=== PATIENT | male | born 1940 | race Caucasian/White ===

== ENCOUNTER 2017-09-09 10:24 | Inpatient (IN) | payer MEDICARE ==
[2017-09-09] MEDS ORDERED: methylPREDNISolone Sodium Succinate 125 MG/2 ML SDV IVPUSH ONE (10:33)
[2017-09-09] MEDS ORDERED: Aspirin 81 MG Tab.Chew PO ONE (10:39)
--- NOTE | 2017-09-09 10:39 | EDM.PDOC ---
ED HPI GENERAL MEDICAL PROBLEM - General Chief Complaint: Respiratory Problem Stated Complaint: AMB Time Seen by Provider: 09/09/17 10:28 Source of Information: Reports: Patient History Limitations: Reports: No Limitations - History of Present Illness INITIAL COMMENTS - FREE TEXT/NARRATIVE: HISTORY AND PHYSICAL: History of present illness: Patient is a 77-year-old male who presents to the emergency room with complaints of shortness of breath started approximately 2 AM this morning. He does have a history of COPD which he chronically has dyspnea. States he had some chills last night but no reported fever. Denies any headache, chest pain, abdominal pain, nausea, vomiting or diarrhea. EMS gave the patient a nebulizer treatment in route. Oxygen saturation on room air is 93%. He is 97% on 4 L per nasal cannula. Past medical history of COPD, asthma, bronchitis, recurrent pneumonia, CVA, HI with stents, dementia, left partial lobectomy. Review of systems: As per history of present illness and below otherwise all systems reviewed and negative. Past medical history: As per history of present illness and as reviewed below otherwise noncontributory. Surgical history: As per history of present illness and as reviewed below otherwise noncontributory. Social history: No reported history of drug or alcohol abuse. Family history: As per history of present illness and as reviewed below otherwise noncontributory. Physical exam: Gen.: Well-developed and well-nourished 77-year-old male. Appears to be short of breath and finds comfort sitting in a high followers position. He is alert and oriented. Able to speak in short sentences. HEENT: Atraumatic, normocephalic, pupils reactive, negative for conjunctival pallor or scleral icterus, mucous membranes moist, throat clear, neck supple, nontender, trachea midline. Lungs: Diminished throughout, more so on the left than the right. Patient is a history of lobectomy to the left. An expiratory wheezing noted, chest nontender. Heart: S1S2, regular, negative for clicks, rubs, or JVD. Abdomen: Soft, nondistended, nontender. Negative for masses or hepatosplenomegaly. Negative for costovertebral tenderness. Pelvis: Stable nontender. Genitourinary: Deferred. Rectal: Deferred. Extremities: Atraumatic, negative for cords or calf pain. Neurovascular unremarkable. Skin: Intact, warm, dry. Does appear pale. No overt lesions, sores or rashes. Neuro: Awake, alert, oriented. Cranial nerves II through XII unremarkable. Cerebellum unremarkable. Motor and sensory unremarkable throughout. Exam nonfocal. Patient continues to deny any chest pain. He is resting in the high Pham's position. Vital signs continue to be within normal limits. I did review his labs with him. CBC shows a white count of 15.3, BNP is 915. Chest x-ray shows no pneumonia. Would like to keep this patient for observation due to the new left bundle branch block. Dr. Lozano was consulted and reviewed this case with him. He is agreeable to admitting this patient for observation on telemetry. Rubina Lock NP is in evaluating the patient. Diagnostics: CBC, CMP, blood cultures, troponin, BNP, EKG, chest x-ray Therapeutics: Aspirin, neb treatment, Solu-Medrol, lasix Impression: COPD exacerbation New onset left bundle branch block Plan: MedSurg observation admission on telemetry Definitive disposition and diagnosis as appropriate pending reevaluation and review of above. Onset: Today Duration: Hour(s): Location: Reports: Generalized - Related Data Allergies Allergy/AdvReac Type Severity Reaction Status Date / Time amoxicillin Allergy Airway Verified 09/09/17 10:33 Tightness cat dander Allergy Difficulty Verified 09/09/17 10:33 Breathing dog dander Allergy Difficulty Verified 09/09/17 10:33 Breathing Penicillins Allergy Airway Verified 09/09/17 10:33 Tightness Home Meds: Home Meds Albuterol Sulfate [Proair Respiclick] 90 mcg IH ASDIRECTED 02/15/16 [History] Albuterol [Proventil HFA] 2 puff INH ASDIRECTED PRN 02/15/16 [History] Albuterol [Take Home: Albuterol 0.083%, 4 Neb Pack] 1 ampule INH ASDIRECTED PRN 02/15/16 [History] Aspirin 81 mg PO DAILY 02/15/16 [History] Carvedilol [Coreg] 3.125 mg PO BID 02/15/16 [History] Donepezil HCl 10 mg PO BEDTIME 02/15/16 [History] Finasteride 5 mg PO DAILY 02/15/16 [History] Fluticasone Propionate [Flovent] 2 spray NASBOTH DAILY 02/15/16 [History] Ipratropium/Albuterol Sulfate [Iprat-Albut 0.5-3(2.5) mg/3 ml] 1 ampule INH ASDIRECTED PRN 02/15/16 [History] Isosorbide Mononitrate [Imdur] 30 mg PO DAILY 02/15/16 [History] LORazepam 2 mg PO BEDTIME PRN 02/15/16 [History] Lansoprazole [Prevacid] 30 mg PO DAILY 02/15/16 [History] Loratadine 10 mg PO DAILY 02/15/16 [History] Lutein/Minerals/Vit A,C & E [Ocuvite] 1 tab PO DAILY 02/15/16 [History] Lysine HCl [l-Lysine] 500 mg PO DAILY 02/15/16 [History] Memantine HCl [Namenda] 10 mg PO BID 02/15/16 [History] Mometasone/Formoterol [Dulera 200-5 MCG] 2 puff INH BID 02/15/16 [History] Montelukast Sodium [Singulair] 10 mg PO BEDTIME 02/15/16 [History] Naproxen 500 mg PO BIDAC PRN 02/15/16 [History] Non-Formulary Medication [NF Drug] 1 tab PO DAILY 02/15/16 [History] Nortriptyline HCl [Pamelor] 75 mg PO BID 02/15/16 [History] Pravastatin Sodium [Pravastatin (Pravachol)] 40 mg PO BEDTIME 02/15/16 [History] Tiotropium [Spiriva HandiHaler] 18 mcg INH DAILY 02/15/16 [History] Venlafaxine [Venlafaxine HCl ER] 150 mg PO DAILY 02/15/16 [History] Vitamin B Complex 2 tab PO DAILY 02/15/16 [History] oxyCODONE HCl [Oxaydo] 5 mg PO ASDIRECTED PRN 02/15/16 [History] Levofloxacin [Levaquin] 500 mg PO Q24H #5 tablet 02/16/16 [Rx] Prednisone [IJD: predniSONE] 20 mg PO WITHBREAKFAST #10 tab 02/16/16 [Rx] Past Medical History HEENT History: Reports: Impaired Vision Other HEENT History: wears glasses Cardiovascular History: Reports: HI, Stents Respiratory History: Reports: Asthma, COPD, Pneumonia, Recurrent Musculoskeletal History: Reports: Fracture Neurological History: Reports: CVA, Other (See Below) Other Neuro History: Dementia Psychiatric History: Reports: Dementia Oncologic (Cancer) History: Reports: Lung - Past Surgical History Oncologic Surgical History: Reports: Lobectomy, Other (See Below) Social & Family History - Family History Family Medical History: Unobtainable - Tobacco Use Smoking Status *Q: Former Smoker - Recreational Drug Use Recreational Drug Use: No ED ROS GENERAL - Review of Systems Review Of Systems: ROS reveals no pertinent complaints other than HPI. ED EXAM, GENERAL - Physical Exam Exam: See Below (See dictation) EKG INTERPRETATION EKG Date: 09/09/17 Time: 10:28 Rhythm: Other (Left bundle branch block) Rate (Beats/Min): 103 Comparison: Change From Previous EKG EKG Interpretation Comments: The only other EKG was from 2016, when the patient was admitted for COPD with pneumonia. At that time he did not have a left bundle branch block. Course - Vital Signs Last Recorded V/S: Last Vital Signs Temp 97.3 F 09/09/17 10:33 Pulse 110 H 09/09/17 10:33 Resp 22 H 09/09/17 10:33 BP 127/64 09/09/17 10:33 Pulse Ox 97 09/09/17 10:33 - Orders/Labs/Meds Orders: Active Orders 24 hr Category Date Time Status EKG Documentation Completion [RC] STAT Care 09/09/17 10:33 Active RT Aerosol Therapy [RC] ASDIRECTED Care 09/09/17 10:43 Active CULTURE BLOOD [BC] Stat Lab 09/09/17 10:40 Received CULTURE BLOOD [BC] Stat Lab 09/09/17 10:50 Received Blood Culture x2 Reflex Set [OM.PC] Stat Oth 09/09/17 10:34 Ordered Labs: Laboratory Tests 09/09/17 09/09/17 09/09/17 Range/Units 10:40 10:40 10:40 WBC 15.37 H (4.0-11.0) K/uL RBC 3.83 L (4.50-5.90) M/uL Hgb 12.4 L (13.0-17.0) g/dL Hct 37.5 L (38.0-50.0) % MCV 97.9 (80.0-98.0) fL MCH 32.4 H (27.0-32.0) pg MCHC 33.1 (31.0-37.0) g/dL RDW Std Deviation 47.6 (28.0-62.0) fl RDW Coeff of [place] 13 (11.0-15.0) % Plt Count 177 (150-400) K/uL MPV 9.90 (7.40-12.00) fL Neut % (Auto) 87.8 H (48.0-80.0) % Lymph % (Auto) 5.7 L (16.0-40.0) % [place] % (Auto) 6.3 (0.0-15.0) % Eos % (Auto) 0.1 (0.0-7.0) % Baso % (Auto) 0.1 (0.0-1.5) % Neut # (Auto) 13.5 H (1.4-5.7) K/uL Lymph # (Auto) 0.9 (0.6-2.4) K/uL [place] # (Auto) 1.0 H (0.0-0.8) K/uL Eos # (Auto) 0.0 (0.0-0.7) K/uL Baso # (Auto) 0.0 (0.0-0.1) K/uL Nucleated RBC % 0.0 /100WBC Nucleated RBCs # 0 K/uL Lactate (0.20-2.00) mmol/L Sodium 137 (136-146) mmol/L Potassium 3.8 (3.5-5.1) mmol/L Chloride 107 (98-110) mmol/L Carbon Dioxide 21 (21-31) mmol/L BUN 11 (6.0-23.0) mg/dL Creatinine 0.8 (0.6-1.5) mg/dL Est Cr Clr Drug Dosing TNP Estimated GFR (MDRD) > 60.0 ml/min Glucose 104 (60-110) mg/dL Calcium 9.2 (8.8-10.8) mg/dL Total Bilirubin 0.8 (0.1-1.5) mg/dL AST 16 (5-40) IU/L ALT 13 (8-54) IU/L Alkaline Phosphatase 82 (40-150) Troponin I < 0.10 (0.0-0.29) NG/ML B-Natriuretic Peptide 915 H (<100) PG/ML Total Protein 6.7 (6.0-8.0) g/dL Albumin 3.8 (3.4-4.8) g/dL Globulin 2.9 (2.0-3.5) g/dL Albumin/Globulin Ratio 1.3 (1.3-2.8) 12/18/17 Range/Units 10:50 WBC (4.0-11.0) K/uL RBC (4.50-5.90) M/uL Hgb (13.0-17.0) g/dL Hct (38.0-50.0) % MCV (80.0-98.0) fL MCH (27.0-32.0) pg MCHC (31.0-37.0) g/dL RDW Std Deviation (28.0-62.0) fl RDW Coeff of [place] (11.0-15.0) % Plt Count (150-400) K/uL MPV (7.40-12.00) fL Neut % (Auto) (48.0-80.0) % Lymph % (Auto) (16.0-40.0) % [place] % (Auto) (0.0-15.0) % Eos % (Auto) (0.0-7.0) % Baso % (Auto) (0.0-1.5) % Neut # (Auto) (1.4-5.7) K/uL Lymph # (Auto) (0.6-2.4) K/uL [place] # (Auto) (0.0-0.8) K/uL Eos # (Auto) (0.0-0.7) K/uL Baso # (Auto) (0.0-0.1) K/uL Nucleated RBC % /100WBC Nucleated RBCs # K/uL Lactate 0.8 (0.20-2.00) mmol/L Sodium (136-146) mmol/L Potassium (3.5-5.1) mmol/L Chloride (98-110) mmol/L Carbon Dioxide (21-31) mmol/L BUN (6.0-23.0) mg/dL Creatinine (0.6-1.5) mg/dL Est Cr Clr Drug Dosing Estimated GFR (MDRD) ml/min Glucose (60-110) mg/dL Calcium (8.8-10.8) mg/dL Total Bilirubin (0.1-1.5) mg/dL AST (5-40) IU/L ALT (8-54) IU/L Alkaline Phosphatase (40-150) Troponin I (0.0-0.29) NG/ML B-Natriuretic Peptide (<100) PG/ML Total Protein (6.0-8.0) g/dL Albumin (3.4-4.8) g/dL Globulin (2.0-3.5) g/dL Albumin/Globulin Ratio (1.3-2.8) Meds: Medications Discontinued Medications Generic Name Dose Route Start Last Admin Trade Name Freq PRN Reason Stop Dose Admin Albuterol/Ipratropium 3 ml 09/09/17 10:43 09/09/17 10:49 Duoneb 3.0-0.5 Mg/3 Ml NEB 09/09/17 10:44 Not Given ONETIME ONE Albuterol/Ipratropium Confirm 09/09/17 10:43 09/09/17 10:48 Duoneb 3.0-0.5 Mg/3 Ml Administered 09/09/17 10:44 3 ml Dose Administration 3 ml .ROUTE .STK-MED ONE Aspirin 324 mg 09/09/17 10:39 09/09/17 11:09 Aspirin PO 09/09/17 10:40 324 mg ONETIME ONE Administration Furosemide 20 mg 09/09/17 11:27 Lasix IVPUSH 09/09/17 11:28 NOW ONE Methylprednisolone Sodium Succinate 125 mg 09/09/17 10:33 09/09/17 11:10 Solu-Medrol IVPUSH 09/09/17 10:34 125 mg ONETIME ONE Administration Morphine Sulfate 2 mg 09/09/17 10:47 09/09/17 11:19 Morphine IVPUSH 09/09/17 10:48 Not Given ONETIME ONE Departure - Departure Time of Disposition: 11:51 Disposition: Refer to Observation Clinical Impression: COPD exacerbation, Left bundle branch block - Discharge Information - My Orders Last 24 Hours: My Active Orders 09/09/17 10:33 EKG Documentation Completion [RC] STAT 09/09/17 10:34 Blood Culture x2 Reflex Set [OM.PC] Stat 09/09/17 10:40 CULTURE BLOOD [BC] Stat 09/09/17 10:43 RT Aerosol Therapy [RC] ASDIRECTED 09/09/17 10:50 CULTURE BLOOD [BC] Stat - Assessment/Plan Last 24 Hours: My Active Orders 09/09/17 10:33 EKG Documentation Completion [RC] STAT 09/09/17 10:34 Blood Culture x2 Reflex Set [OM.PC] Stat 09/09/17 10:40 CULTURE BLOOD [BC] Stat 09/09/17 10:43 RT Aerosol Therapy [RC] ASDIRECTED 09/09/17 10:50 CULTURE BLOOD [BC] Stat
[2017-09-09] MEDS ORDERED: Albuterol/Ipratropium 3.0-0.5 MG/3 ML Neb Soln ONE (10:43)
[2017-09-09] MEDS ORDERED: Albuterol/Ipratropium 3.0-0.5 MG/3 ML Neb Soln NEB ONE (10:43)
[2017-09-09] MEDS ORDERED: Morphine 2 MG/ML Syringe IVPUSH ONE (10:47)
--- NOTE | 2017-09-09 11:21 | CR ---
EXAMINATION: Portable chest radiograph. HISTORY: Shortness of breath. FINDINGS: The trachea is midline. The cardiomediastinal silhouette is within normal limits. No pulmonary infilt rates, effusions or pneumothorax. Grossly stable left basilar atelectasis and or scarring. Stable marline vation of the left hemidiaphragm. Degenerative changes are noted within the shoulders, right greater than left. IMPRESSION: No acute cardiopulmonary process.
[2017-09-09] MEDS ORDERED: Furosemide 40 MG/4 ML VIAL IVPUSH ONE (11:27)
[2017-09-09 11:28] LABS: CHLORIDE,CL 107 mmol/L (98-110); SODIUM,NA 137 mmol/L (136-146)
[2017-09-09] MEDS ORDERED: Acetaminophen 325 MG Tab PO PRN (12:11)
[2017-09-09] MEDS ORDERED: Albuterol 0.083% 2.5 MG/3 ML Neb Soln NEB PRN (12:11)
--- NOTE | 2017-09-09 12:24 | PCM.HP ---
H&P History of Present Illness - General Date of Service: 09/09/17 Admit Problem/Dx: Admission Diagnosis/Problem Admission Diagnosis/Problem Dyspnea Source of Information: Patient, Family ( at bedside) History Limitations: Reports: No Limitations - History of Present Illness Initial Comments - Free Text/Narative: This 77 year old male with pmh of COPD, CAD, L lobectomy for lung ca 2011, recurrent pneumonia, dementia, and BPH presented to the ED this morning with complaints of SOB, malaise,chills and cough. They recently flew to [place] from home in [place] to visit family over the holiday. He and his report for the last 5 days he has progressively worsened with SOB and malaise. She reports he has been falling due to weakness, and fell 4 times yesterday not hitting his head. He reports a congested non productive cough, some chest pain that he relates to his recurrent pneumonia. He reports he get this pain whenever he get pneumonia. He denies radiation of the pain, it doesn't worsen with activity or deep breathing or coughing. It goes away on its own. He denies jaw pain, L shoulder/arm pain and no N/V. Denies swelling to feet or ankles. He was recently seen by his ladderman at home with a good check up. Family reports some worsening confusion, with his dementia, over the last couple days. He is not oxygen dependent. Quit smoking and drinking 10 years ago. Has some exposure to 2nd hand smoke from family members. In the ED leukocytosis noted, 15,340, Hgb 12.4, BMP WNL, BNP 915, lactate 0.8 BC were obtained. CXR revealed stable L basilar atelectasis/scarring no infiltrates. He was treated with Solumedrol and Albuterol in the ED, suspected to have COPD exacerbation. EKG obtained in ED revealed new LBBB, no current chest pain. Will obtain records/EKG from cardiology in [place]. - Related Data Allergies/Adverse Reactions: Allergies Allergy/AdvReac Type Severity Reaction Status Date / Time amoxicillin Allergy Airway Verified 09/09/17 10:33 Tightness cat dander Allergy Difficulty Verified 09/09/17 10:33 Breathing dog dander Allergy Difficulty Verified 09/09/17 10:33 Breathing Penicillins Allergy Airway Verified 09/09/17 10:33 Tightness Home Medications: Home Meds Albuterol [Proventil HFA] 2 puff INH Q4HRRT PRN 02/15/16 [History] Albuterol [Take Home: Albuterol 0.083%, 4 Neb Pack] 1 ampule INH QID PRN [History] Aspirin 81 mg PO DAILY 02/15/16 [History] Carvedilol [Coreg] 3.125 mg PO BID 02/15/16 [History] Donepezil HCl 10 mg PO BEDTIME 02/15/16 [History] Finasteride 5 mg PO DAILY 02/15/16 [History] Fluticasone Propionate [Flovent] 2 spray NASBOTH DAILY 02/15/16 [History] Ipratropium/Albuterol Sulfate [Iprat-Albut 0.5-3(2.5) mg/3 ml] 1 ampule INH ASDIRECTED PRN 02/15/16 [History] Isosorbide Mononitrate [Imdur] 30 mg PO DAILY 02/15/16 [History] Loratadine 10 mg PO DAILY 02/15/16 [History] Lutein/Minerals/Vit A,C & E [Ocuvite] 1 tab PO DAILY 02/15/16 [History] Memantine HCl [Namenda] 10 mg PO BID 02/15/16 [History] Mometasone/Formoterol [Dulera 200-5 MCG] 2 puff INH BID 02/15/16 [History] Montelukast Sodium [Singulair] 10 mg PO BEDTIME 02/15/16 [History] Nortriptyline HCl [Pamelor] 150 mg PO BEDTIME 02/15/16 [History] Pravastatin Sodium [Pravastatin (Pravachol)] 40 mg PO BEDTIME 02/15/16 [History] Tiotropium [Spiriva HandiHaler] 18 mcg INH DAILY 02/15/16 [History] Venlafaxine [Venlafaxine HCl ER] 150 mg PO DAILY 02/15/16 [History] Vitamin B Complex 2 tab PO DAILY 02/15/16 [History] Omeprazole 20 mg PO ACBREAKFAST 09/09/17 [History] Tamsulosin [Flomax] 0.4 mg PO PCBREAKFAST 09/09/17 [History] Past Medical History HEENT History: Reports: Impaired Vision Other HEENT History: wears glasses Cardiovascular History: Reports: Hypertension, AL, Stents. Denies: Afib, Blood Clots/VTE/DVT Respiratory History: Reports: Asthma, COPD, Pneumonia, Recurrent Musculoskeletal History: Reports: Fracture Neurological History: Reports: CVA, Other (See Below) Other Neuro History: Dementia Psychiatric History: Reports: Dementia Endocrine/Metabolic History: Reports: None. Denies: Diabetes, Type II, Hypothyroidism Oncologic (Cancer) History: Reports: Lung - Past Surgical History Respiratory Surgical History: Reports: Other (See Below) (L basilar lobectomy secondary to lung ca 2011) Oncologic Surgical History: Reports: Lobectomy, Other (See Below) Social & Family History - Family History Family Medical History: Unobtainable - Tobacco Use Smoking Status *Q: Former Smoker Used Tobacco, but Quit: Yes Month Tobacco Last Used: 10 years - Alcohol Use Alcohol Use History: Yes Alcohol Use in Last Twelve Months: Yes Alcohol Use Frequency: Socially Alcohol Use Comment: quit heavily drinking 10 years ago, has a couple drink every now and then - Recreational Drug Use Recreational Drug Use: No - Living Situation & Occupation Living situation: Reports: , with Spouse Occupation: Retired [employer] Review of Systems - Review of Systems: Review Of Systems: See Below General: Reports: Chills, Malaise, Weakness, Fatigue. Denies: Fever HEENT: Denies: Headaches, Sinus Congestion, Sore Throat, Vertigo, Visual Changes Pulmonary: Reports: Shortness of Breath, Pleuritic Chest Pain, Cough, Sputum. Denies: Hemoptysis Cardiovascular: Reports: Dyspnea on Exertion. Denies: Palpitations, Orthopnea, Edema Gastrointestinal: Reports: Decreased Appetite, Vomiting. Denies: Abdominal Pain , Black Stool, Bloody Stool, Nausea Genitourinary: Reports: No Symptoms. Denies: Dysuria Musculoskeletal: Reports: No Symptoms. Denies: Neck Pain, Arm Pain, Muscle Stiffness Skin: Reports: No Symptoms Neurological: Reports: Confusion (some worsening in confusion in last couple days.) Exam - Exam Exam: See Below - Vital Signs Vital Signs: Last Vital Signs Temp 97.3 F 09/09/17 10:33 Pulse 100 09/09/17 12:06 Resp 20 09/09/17 12:06 BP 135/60 09/09/17 12:06 Pulse Ox 96 09/09/17 12:06 Weight: 68.039 kg - Exam Quality Assessment: Supplemental Oxygen General: Alert, Oriented, Cooperative HEENT: PERRLA, Hearing Intact, Mucosa Moist & [place], Nares Patent, Normal Nasal Septum, Posterior Pharynx Clear, Conjunctiva Clear, EOMI, EACs Clear, TMs Clear Neck: Supple. No: JVD Lungs: Crackles, Rhonchi (throughout) Cardiovascular: Regular Rate, Regular Rhythm, Normal S1, Normal S2 GI/Abdominal Exam: Normal Bowel Sounds, Soft, Non-Tender, No Organomegaly, No Distention, No Abnormal Bruit, No Mass, Pelvis Stable Extremities: Normal Inspection, Normal Range of Motion, Non-Tender, No Pedal Edema, Normal Capillary Refill Neuro Extensive - Mental Status: Alert, Oriented x3, Normal Mood/Affect Neuro Extensive - Motor, Sensory, Reflexes: CN II-XII Intact Psychiatric: Alert, Normal Affect, Normal Mood - Patient Data Result Diagrams: 09/09/17 10:40 09/09/17 10:40 EKG INTERPRETATION EKG Date: 09/09/17 Rhythm: NSR Rate (Beats/Min): 103 QRS: LBBB (new since 01/2016) Comparison: Change From Previous EKG *Q Meaningful Use (ADM) - VTE *Q VTE Criteria *Q: - Stroke *Q Stroke Criteria *Q: - AMI *Q AMI Criteria *Q: - Problem List (1) Influenza A SNOMED Code(s): 269915390 ICD Code: J10.1 - FLU DUE TO OTH IDENT INFLUENZA VIRUS W OTH RESP MANIFEST Status: Acute Current Visit: Yes (2) Pneumonia SNOMED Code(s): 699056319 ICD Code: J18.9 - PNEUMONIA, UNSPECIFIED ORGANISM Status: Acute Current Visit: No Qualifiers: Laterality: unspecified laterality (3) COPD exacerbation SNOMED Code(s): 263042760550301 ICD Code: J44.1 - CHRONIC OBSTRUCTIVE PULMONARY DISEASE W (ACUTE) EXACERBATION Status: Acute Current Visit: Yes (4) Left bundle branch block SNOMED Code(s): 41328471 ICD Code: I44.7 - LEFT BUNDLE-BRANCH BLOCK, UNSPECIFIED Status: Acute Current Visit: Yes (5) History of lobectomy of lung SNOMED Code(s): 686138407 ICD Code: Z98.890 - OTHER SPECIFIED POSTPROCEDURAL STATES; Z90.2 - ACQUIRED ABSENCE OF LUNG [PART OF] Status: Chronic Current Visit: Yes (6) Dementia SNOMED Code(s): 16967226 ICD Code: F03.90 - UNSPECIFIED DEMENTIA WITHOUT BEHAVIORAL DISTURBANCE Status: Chronic Current Visit: Yes (7) Hx of coronary artery disease SNOMED Code(s): 632850251 ICD Code: Z86.79 - PERSONAL HISTORY OF OTHER DISEASES OF THE CIRCULATORY SYSTEM Status: Chronic Current Visit: Yes Problem List Initiated/Reviewed/Updated: Yes Orders Last 24hrs: Active Orders 24 hr Category Date Time Status Communication Order [RC] PRN Care 09/09/17 12:11 Active Intake and Output [RC] QSHIFT Care 09/09/17 12:12 Active Oxygen Therapy [RC] PRN Care 09/09/17 12:12 Active RT Aerosol Therapy [RC] ASDIRECTED Care 09/09/17 12:13 Active Telemetry Monitoring [Cardiac Monitoring] [RC] . Care 09/09/17 12:16 Active DIRECTED Up ad Dodie [RC] ASDIRECTED Care 09/09/17 12:11 Active VTE/DVT Education [RC] PER UNIT ROUTINE Care 09/09/17 12:12 Active Vital Signs [RC] Q4H Care 09/09/17 12:12 Active Heart Healthy Diet [DIET] Diet 09/09/17 Lunch Active BASIC METABOLIC PANEL,BMP [CHEM] AM Lab 09/10/17 05:11 Ordered BASIC METABOLIC PANEL,BMP [CHEM] AM Lab 09/11/17 05:11 Ordered BASIC METABOLIC PANEL,BMP [CHEM] AM Lab 09/12/17 05:11 Ordered BASIC METABOLIC PANEL,BMP [CHEM] AM Lab 09/13/17 05:11 Ordered CBC WITH AUTO DIFF [HEME] AM Lab 09/10/17 05:11 Ordered CBC WITH AUTO DIFF [HEME] AM Lab 09/11/17 05:11 Ordered CBC WITH AUTO DIFF [HEME] AM Lab 09/12/17 05:11 Ordered CBC WITH AUTO DIFF [HEME] AM Lab 09/13/17 05:11 Ordered CULTURE SPUTUM + SMEAR [RM] Routine Lab 09/09/17 12:22 Uncollected INFLUENZA A+B AG SCREEN [RM] Urgent Lab 09/09/17 12:08 Uncollected Acetaminophen [Tylenol] Med 09/09/17 12:11 Active 650 mg PO Q4H PRN Albuterol [Proventil Neb Soln] Med 09/09/17 12:11 Active 2.5 mg NEB Q2HR PRN Albuterol/Ipratropium [DuoNeb 3.0-0.5 MG/3 ML] Med 09/09/17 14:00 Active 3 ml NEB Q4HRRT Levofloxacin/Dextrose 5%-Water [Levaquin in D5W 750 MG/ Med 09/09/17 12:30 Active 150 ML] 750 mg Premix Bag 1 bag IV Q24H Resuscitation Status Routine Resus Stat 09/09/17 12:11 Ordered Medication Orders Acetaminophen (Tylenol) 650 mg PO Q4H PRN PRN Reason: Pain (mild 1-3) Albuterol (Proventil Neb Soln) 2.5 mg NEB Q2HR PRN PRN Reason: Shortness Of Breath/wheezing Albuterol/Ipratropium (Duoneb 3.0-0.5 Mg/3 Ml) 3 ml NEB Q4HRRT JAMES Levofloxacin/Dextrose 750 mg/ (Premix) 150 mls @ 100 mls/hr IV Q24H [facility] Assessment/Plan Comment:: This 77 year old male admitted with community acquired pneumonia 1. Community acquired pneumonia: Recurrent due to COPD and hx lobectomy. BC pending. Will obtain sputum culture. Treat with IV Levaquin 750 mg. Treating clinically due to congested cough, leukocytosis and hx COPD with recurrent pneumonia 2. Influenza A positive: Will start Tamiflu 75 mg BID. Had influenza vaccine this year. Xroplet and contact precautions. 3. COPD exacerbation: No wheezing heard on assessment, but did receive albuterol and Solumedrol prior to assessment. Will monitor. Give Solumedrol 125 mg BID for now. Conitnue Duonebs and albuterol. Continue home inhalers. 4. Hx CAD: reviewed records from cardiology in [place]. Has noted hx of LBBB. Will continue ASA, Imdur and Pravastatin 5. BPH: Continue Proscar and Flomax. 6. Dementia: COntinue Aricept and Namenda VTE prophylaxis: Heparin Dispo: 3-4 days pending improvement.
[2017-09-09] MEDS ORDERED: Sodium Chloride 0.9% 1,000 ML IV SCH (14:45)
[2017-09-09] MEDS: Albuterol/Ipratropium 3.0-0.5 MG/3 ML Neb Soln NEB SCH ×3 (14:57→21:50)
[2017-09-09] MEDS: Oseltamivir 75 MG Cap PO SCH ×2 (15:53→22:14)
[2017-09-09] MEDS: Levofloxacin/Dextrose 5%-Water 750 MG in Premix Bag 1 BAG IV SCH (15:54)
[2017-09-09] MEDS: Carvedilol 3.125 MG Tab PO SCH (17:11)
[2017-09-09] MEDS: MOMETASONE INH SCH (21:50)
[2017-09-09] MEDS: FORMOTEROL INH SCH (21:50)
[2017-09-09] MEDS: Donepezil 10 MG Tab PO SCH (22:14)
[2017-09-09] MEDS: Memantine 10 MG Tab PO SCH (22:14)
[2017-09-09] MEDS: Heparin Sodium 5,000 Units/ML Vial SUBCUT SCH (22:14)
[2017-09-09] MEDS: Pravastatin 40 MG Tab PO SCH (22:14)
[2017-09-09] MEDS: Montelukast 10 MG Tab PO SCH (22:14)
[2017-09-09] MEDS: methylPREDNISolone Sodium Succinate 125 MG/2 ML SDV IVPUSH SCH (22:16)
[2017-09-09] MEDS: Nortriptyline 25 MG Cap PO SCH (22:44)
[2017-09-10] MEDS: Albuterol/Ipratropium 3.0-0.5 MG/3 ML Neb Soln NEB SCH ×5 (01:24→21:40)
[2017-09-10] MEDS: Heparin Sodium 5,000 Units/ML Vial SUBCUT SCH ×2 (09:00→20:46)
[2017-09-10] MEDS: methylPREDNISolone Sodium Succinate 125 MG/2 ML SDV IVPUSH SCH ×2 (09:00→20:40)
[2017-09-10] MEDS: Aspirin 81 MG Tab.Chew PO SCH (09:00)
[2017-09-10] MEDS: Tamsulosin 0.4 MG Cap.ER PO SCH (09:00)
[2017-09-10] MEDS: Isosorbide Mononitrate 30 MG Tab.ER PO SCH (09:00)
[2017-09-10] MEDS: Loratadine 10 MG Tab PO SCH (09:00)
[2017-09-10] MEDS: Oseltamivir 75 MG Cap PO SCH ×2 (09:00→20:36)
[2017-09-10 14:10] LABS: CHLORIDE,CL 107 mmol/L (98-110); SODIUM,NA 138 mmol/L (136-146)
[2017-09-10] MEDS: Carvedilol 3.125 MG Tab PO SCH ×2 (19:08→19:09)
[2017-09-10] MEDS: Benzocaine/Cetylpyridinium/Menthol Lozenge MUCMEM PRN (19:08)
[2017-09-10] MEDS: Levofloxacin/Dextrose 5%-Water 750 MG in Premix Bag 1 BAG IV SCH (19:11)
[2017-09-10] MEDS: VITAMIN B COMPLEX PO SCH (19:13)
[2017-09-10] MEDS: VIT A C PO SCH (19:14)
[2017-09-10] MEDS: [UNRECOGNIZED DRUG - OTHER] PO SCH (19:14)
[2017-09-10] MEDS: LUTEIN PO SCH (19:14)
[2017-09-10] MEDS: MINERALS PO SCH (19:14)
[2017-09-10] MEDS: MOMETASONE INH SCH ×2 (20:28→21:42)
[2017-09-10] MEDS: FORMOTEROL INH SCH ×2 (20:28→21:42)
[2017-09-10] MEDS: Donepezil 10 MG Tab PO SCH (20:36)
[2017-09-10] MEDS: Pravastatin 40 MG Tab PO SCH (20:36)
[2017-09-10] MEDS: Memantine 10 MG Tab PO SCH (20:36)
[2017-09-10] MEDS: Montelukast 10 MG Tab PO SCH (20:36)
[2017-09-10] MEDS: Nortriptyline 25 MG Cap PO SCH (20:38)
[2017-09-11] MEDS: Albuterol/Ipratropium 3.0-0.5 MG/3 ML Neb Soln NEB SCH ×7 (01:25→21:55)
[2017-09-11 06:06] LABS: CHLORIDE,CL 106 mmol/L (98-110); SODIUM,NA 138 mmol/L (136-146)
[2017-09-11] MEDS: Tiotropium Inhaler 18 MCG Inhalation Powder Cap Kit of 5 INH SCH ×2 (08:48→09:02)
[2017-09-11] MEDS: FORMOTEROL INH SCH ×2 (08:51→21:03)
[2017-09-11] MEDS: MOMETASONE INH SCH ×2 (08:51→21:03)
[2017-09-11] MEDS ORDERED: Omeprazole 20 MG Cap.CR ONE (08:53)
[2017-09-11] MEDS: Non-Formulary Medication 1 Each (Omeprazole [Omeprazole] 20 MG) PO SCH ×2 (08:58→09:00)
[2017-09-11] MEDS ORDERED: methylPREDNISolone Sodium Succinate 125 MG/2 ML SDV IVPUSH SCH (09:00)
[2017-09-11] MEDS: Venlafaxine 75 MG Cap.ER PO SCH ×2 (09:01→09:03)
[2017-09-11] MEDS: Fluticasone Propionate Nasal Spray 16 GM Bottle NASBOTH SCH ×2 (09:01→09:03)
[2017-09-11] MEDS: Memantine 10 MG Tab PO SCH ×3 (09:01→20:31)
[2017-09-11] MEDS: Finasteride 5 MG Tab PO SCH ×2 (09:02→09:04)
[2017-09-11] MEDS: Tamsulosin 0.4 MG Cap.ER PO SCH (09:03)
[2017-09-11] MEDS: Isosorbide Mononitrate 30 MG Tab.ER PO SCH (09:04)
[2017-09-11] MEDS: Oseltamivir 75 MG Cap PO SCH ×2 (09:04→20:31)
[2017-09-11] MEDS: Loratadine 10 MG Tab PO SCH (09:05)
[2017-09-11] MEDS: Carvedilol 3.125 MG Tab PO SCH ×2 (09:05→19:24)
[2017-09-11] MEDS: predniSONE 20 MG Tab PO SCH (09:05)
[2017-09-11] MEDS: Aspirin 81 MG Tab.Chew PO SCH (09:06)
[2017-09-11] MEDS: Heparin Sodium 5,000 Units/ML Vial SUBCUT SCH ×2 (09:06→20:31)
[2017-09-11] MEDS: MINERALS PO SCH (09:07)
[2017-09-11] MEDS: LUTEIN PO SCH (09:07)
[2017-09-11] MEDS: VIT A C PO SCH (09:07)
[2017-09-11] MEDS: VITAMIN B COMPLEX PO SCH (09:07)
[2017-09-11] MEDS: [UNRECOGNIZED DRUG - OTHER] PO SCH (09:07)
[2017-09-11] MEDS ORDERED: Omeprazole 20 MG Cap.CR PO SCH (09:56)
--- NOTE | 2017-09-11 10:02 | PCM.PN ---
- General Info Date of Service: 09/11/17 Admission Dx/Problem (Free Text): Admission Diagnosis/Problem Admission Diagnosis/Problem Pneumonia and Influenza A positive Subjective Update: Feeling a lot better this morning, slept very well overnight. No chest pain or SOB. Cough is better and less productive today. Almost feeling back to normal. Weakness is improving and is up ambulating in the room. "I feel I getting my bearings back." Functional Status: Reports: Pain Controlled, Tolerating Diet, Ambulating, Urinating - Review of Systems General: Reports: No Symptoms. Denies: Fever Pulmonary: Reports: Shortness of Breath (intermittently, but much improved. Near baseline), Cough. Denies: Sputum, Hemoptysis, Wheezing Cardiovascular: Reports: No Symptoms. Denies: Chest Pain, Palpitations, Orthopnea Gastrointestinal: Reports: No Symptoms. Denies: Abdominal Pain, Nausea, Vomiting Genitourinary: Reports: No Symptoms. Denies: Dysuria, Frequency Neurological: Reports: No Symptoms. Denies: Confusion Psychiatric: Reports: No Symptoms. Denies: Confusion - Patient Data Vitals - Most Recent: Last Vital Signs Temp 98.1 F 09/11/17 04:00 Pulse 86 09/11/17 09:05 Resp 17 09/11/17 04:00 BP 137/62 09/11/17 09:05 Pulse Ox 93 L 09/11/17 04:00 Weight - Most Recent: 68.039 kg I&O - Last 24 Hours: Intake & Output 09/10/17 09/11/17 09/11/17 22:59 06:59 14:59 Intake Total 1678 900 Output Total 1180 860 Balance 498 40 Lab Results Last 24 Hours: Laboratory Results - last 24 hr 09/10/17 09/10/17 09/11/17 Range/Units 05:35 05:35 05:02 WBC 15.36 H 18.11 H (4.0-11.0) K/uL RBC 3.79 L 3.63 L (4.50-5.90) M/uL Hgb 12.5 L 11.9 L (13.0-17.0) g/dL Hct 37.1 L 35.6 L (38.0-50.0) % MCV 97.9 98.1 H (80.0-98.0) fL MCH 33.0 H 32.8 H (27.0-32.0) pg MCHC 33.7 33.4 (31.0-37.0) g/dL RDW Std Deviation 47.5 46.7 (28.0-62.0) fl RDW Coeff of Aislinn 13 13 (11.0-15.0) % Plt Count 196 232 (150-400) K/uL MPV 10.30 10.10 (7.40-12.00) fL Neut % (Auto) 94.8 H 91.6 H (48.0-80.0) % Lymph % (Auto) 2.9 L 3.9 L (16.0-40.0) % [place] % (Auto) 2.2 4.4 (0.0-15.0) % Eos % (Auto) 0.1 0.0 (0.0-7.0) % Baso % (Auto) 0.0 0.1 (0.0-1.5) % Neut # (Auto) 14.6 H 16.6 H (1.4-5.7) K/uL Lymph # (Auto) 0.4 L 0.7 (0.6-2.4) K/uL [place] # (Auto) 0.3 0.8 (0.0-0.8) K/uL Eos # (Auto) 0.0 0.0 (0.0-0.7) K/uL Baso # (Auto) 0.0 0.0 (0.0-0.1) K/uL Nucleated RBC % 0.0 0.0 /100WBC Nucleated RBCs # 0 0 K/uL Sodium 138 (136-146) mmol/L Potassium 3.9 (3.5-5.1) mmol/L Chloride 107 (98-110) mmol/L Carbon Dioxide 22 (21-31) mmol/L BUN 15 (6.0-23.0) mg/dL Creatinine 0.8 (0.6-1.5) mg/dL Est Cr Clr Drug Dosing 72.00 mL/min Estimated GFR (MDRD) > 60.0 ml/min Glucose 178 H (60-110) mg/dL Calcium 8.7 L (8.8-10.8) mg/dL 09/11/17 Range/Units 05:02 WBC (4.0-11.0) K/uL RBC (4.50-5.90) M/uL Hgb (13.0-17.0) g/dL Hct (38.0-50.0) % MCV (80.0-98.0) fL MCH (27.0-32.0) pg MCHC (31.0-37.0) g/dL RDW Std Deviation (28.0-62.0) fl RDW Coeff of Aislinn (11.0-15.0) % Plt Count (150-400) K/uL MPV (7.40-12.00) fL Neut % (Auto) (48.0-80.0) % Lymph % (Auto) (16.0-40.0) % [place] % (Auto) (0.0-15.0) % Eos % (Auto) (0.0-7.0) % Baso % (Auto) (0.0-1.5) % Neut # (Auto) (1.4-5.7) K/uL Lymph # (Auto) (0.6-2.4) K/uL [place] # (Auto) (0.0-0.8) K/uL Eos # (Auto) (0.0-0.7) K/uL Baso # (Auto) (0.0-0.1) K/uL Nucleated RBC % /100WBC Nucleated RBCs # K/uL Sodium 138 (136-146) mmol/L Potassium 4.5 (3.5-5.1) mmol/L Chloride 106 (98-110) mmol/L Carbon Dioxide 23 (21-31) mmol/L BUN 21 (6.0-23.0) mg/dL Creatinine 0.8 (0.6-1.5) mg/dL Est Cr Clr Drug Dosing 72.00 mL/min Estimated GFR (MDRD) > 60.0 ml/min Glucose 163 H (60-110) mg/dL Calcium 8.9 (8.8-10.8) mg/dL Sajan Results Last 24 Hours: Microbiology 09/09/17 19:00 Gram Stain - Final Sputum - Expectorated Med Orders - Current: Current Medications Acetaminophen (Tylenol) 650 mg PO Q4H PRN PRN Reason: Pain (mild 1-3) Albuterol (Proventil Neb Soln) 2.5 mg NEB Q2HR PRN PRN Reason: Shortness Of Breath/wheezing Albuterol/Ipratropium (Duoneb 3.0-0.5 Mg/3 Ml) 3 ml NEB Q4HRRT [facility] Last Admin: 09/11/17 09:39 Dose: 3 ml Aspirin (Aspirin) 81 mg PO DAILY [facility] [place] Last Admin: 09/11/17 09:06 Dose: 81 mg Benzocaine/Menthol (Cepacol Sore Throat) 1 lozenge MUCMEM Q2H PRN PRN Reason: Sore Throat Last Admin: 09/10/17 19:08 Dose: 1 lozenge Carvedilol (Coreg) 3.125 mg PO BIDMEALS [facility] [place] Last Admin: 09/11/17 09:05 Dose: 3.125 mg Donepezil HCl (Aricept) 10 mg PO BEDTIME [facility] [place] Last Admin: 09/10/17 20:36 Dose: 10 mg Finasteride (Proscar) 5 mg PO DAILY [facility] [place] Last Admin: 09/11/17 09:04 Dose: 5 mg Fluticasone Propionate (Flonase) 16 gm NASBOTH DAILY [facility] [place] Last Admin: 09/11/17 09:03 Dose: 1 puff Heparin Sodium (Porcine) (Heparin Sodium) 5,000 units SUBCUT Q12HR [facility] [place] Last Admin: 09/11/17 09:06 Dose: 5,000 units Levofloxacin/Dextrose 750 mg/ (Premix) 150 mls @ 100 mls/hr IV Q24H [facility] [place] Last Admin: 09/10/17 19:11 Dose: 100 mls/hr Isosorbide Mononitrate (Imdur) 30 mg PO DAILY [facility] [place] Last Admin: 09/11/17 09:04 Dose: 30 mg Loratadine (Claritin) 10 mg PO DAILY [facility] [place] Last Admin: 09/11/17 09:05 Dose: 10 mg Memantine (Namenda) 10 mg PO BID [facility] [place] Last Admin: 09/11/17 09:03 Dose: 10 mg Montelukast Sodium (Singulair) 10 mg PO BEDTIME [facility] [place] Last Admin: 09/10/17 20:36 Dose: 10 mg Nortriptyline HCl (Nortriptyline) 150 mg PO BEDTIME [facility] [place] Last Admin: 09/10/17 20:38 Dose: 150 mg Omeprazole (Omeprazole) 20 mg PO ACBREAKFAST [facility] Oseltamivir Phosphate (Tamiflu) 75 mg PO BID [facility] [place] Last Admin: 09/11/17 09:04 Dose: 75 mg Lutein/Minerals/Vit A,C & E 1 Tab Ocuvite 1 each PO DAILY [facility] [place] Last Admin: 09/11/17 09:07 Dose: Not Given Mometasone/ (Formoterol 2 Puff) 2 each INH BID [facility] [place] Last Admin: 09/11/17 08:51 Dose: Not Given Vitamin B Complex 2 (Tab) 2 each PO DAILY [facility] [place] Last Admin: 09/11/17 09:07 Dose: Not Given Pravastatin Sodium (Pravachol) 40 mg PO BEDTIME [facility] [place] Last Admin: 09/10/17 20:36 Dose: 40 mg Prednisone (Prednisone) 40 mg PO WITHBREAKFAST [facility] [place] Last Admin: 09/11/17 09:05 Dose: 40 mg Tamsulosin HCl (Flomax) 0.4 mg PO PCBREAKFAST [facility] [place] Last Admin: 09/11/17 09:03 Dose: 0.4 mg Tiotropium [place] (Spiriva Handihaler) 18 mcg INH DAILY [facility] [place] Last Admin: 09/11/17 09:02 Dose: Not Given Venlafaxine HCl (Effexor Xr) 150 mg PO DAILY [facility] [place] Last Admin: 09/11/17 09:03 Dose: 150 mg Discontinued Medications Albuterol/Ipratropium (Duoneb 3.0-0.5 Mg/3 Ml) 3 ml NEB ONETIME ONE Stop: 09/09/17 10:44 Last Admin: 09/09/17 10:49 Dose: Not Given Albuterol/Ipratropium (Duoneb 3.0-0.5 Mg/3 Ml) Confirm Administered Dose 3 ml .ROUTE .STK-MED ONE Stop: 09/09/17 10:44 Last Admin: 09/09/17 10:48 Dose: 3 ml Aspirin (Aspirin) 324 mg PO ONETIME ONE Stop: 09/09/17 10:40 Last Admin: 09/09/17 11:09 Dose: 324 mg Furosemide (Lasix) 20 mg IVPUSH NOW ONE Stop: 09/09/17 11:28 Last Admin: 09/09/17 12:03 Dose: 20 mg Sodium Chloride (Normal Saline) 1,000 mls @ 75 mls/hr IV ASDIRECTED [facility] Stop: 09/10/17 04:04 Last Admin: 09/09/17 15:52 Dose: 75 mls/hr Methylprednisolone Sodium Succinate (Solu-Medrol) 125 mg IVPUSH ONETIME ONE Stop: 09/09/17 10:34 Last Admin: 09/09/17 11:10 Dose: 125 mg Methylprednisolone Sodium Succinate (Solu-Medrol) 125 mg IVPUSH Q12H [facility] [place] Last Admin: 09/10/17 20:40 Dose: 125 mg Methylprednisolone Sodium Succinate (Solu-Medrol) 125 mg IVPUSH DAILY [facility] Morphine Sulfate (Morphine) 2 mg IVPUSH ONETIME ONE Stop: 09/09/17 10:48 Last Admin: 09/09/17 11:19 Dose: Not Given Non-Formulary Medication (Omeprazole [Omeprazole]) 20 mg PO ACBREAKFAST [facility] [place] Last Admin: 09/11/17 09:00 Dose: Not Given Omeprazole (Omeprazole) Confirm Administered Dose 20 mg .ROUTE .STK-MED ONE Stop: 09/11/17 08:54 Last Admin: 09/11/17 09:06 Dose: Not Given - Exam General: Alert, Oriented, Cooperative, No Acute Distress Lungs: Normal Respiratory Effort, Decreased Breath Sounds (L base), Rhonchi ( much improved and scant over R lower lobe. ) Cardiovascular: Regular Rate, Regular Rhythm GI/Abdominal Exam: Normal Bowel Sounds, Soft, Non-Tender, No Organomegaly, No Distention, No Abnormal Bruit, No Mass, Pelvis Stable Extremities: Normal Inspection, Normal Range of Motion, Non-Tender, No Pedal Edema, Normal Capillary Refill Neurological: No New Focal Deficit Psy/Mental Status: Alert, Normal Affect, Normal Mood - Problem List & Annotations (1) Influenza A SNOMED Code(s): 496729411 Code(s): J10.1 - FLU DUE TO OTH IDENT INFLUENZA VIRUS W OTH RESP MANIFEST Status: Acute Current Visit: Yes (2) Pneumonia SNOMED Code(s): 070752237 Code(s): J18.9 - PNEUMONIA, UNSPECIFIED ORGANISM Status: Acute Current Visit: No Qualifiers: Laterality: unspecified laterality (3) COPD exacerbation SNOMED Code(s): 706067543676920 Code(s): J44.1 - CHRONIC OBSTRUCTIVE PULMONARY DISEASE W (ACUTE) EXACERBATION Status: Acute Current Visit: Yes (4) Left bundle branch block SNOMED Code(s): 38796001 Code(s): I44.7 - LEFT BUNDLE-BRANCH BLOCK, UNSPECIFIED Status: Acute Current Visit: Yes (5) History of lobectomy of lung SNOMED Code(s): 395975024 Code(s): Z98.890 - OTHER SPECIFIED POSTPROCEDURAL STATES; Z90.2 - ACQUIRED ABSENCE OF LUNG [PART OF] Status: Chronic Current Visit: Yes (6) Dementia SNOMED Code(s): 04036758 Code(s): F03.90 - UNSPECIFIED DEMENTIA WITHOUT BEHAVIORAL DISTURBANCE Status: Chronic Current Visit: Yes (7) Hx of coronary artery disease SNOMED Code(s): 914566854 Code(s): Z86.79 - PERSONAL HISTORY OF OTHER DISEASES OF THE CIRCULATORY SYSTEM Status: Chronic Current Visit: Yes - Problem List Review Problem List Initiated/Reviewed/Updated: Yes - My Orders Last 24 Hours: My Active Orders 09/10/17 14:06 Benzocaine/Cetylpyrd/Menthol [Cepacol Sore Throat] 1 lozenge MUCMEM Q2H PRN 09/11/17 08:00 predniSONE 40 mg PO WITHBREAKFAST 09/11/17 09:56 Omeprazole 20 mg PO ACBREAKFAST 09/12/17 05:11 BASIC METABOLIC PANEL,BMP [CHEM] AM CBC WITH AUTO DIFF [HEME] AM 09/13/17 05:11 BASIC METABOLIC PANEL,BMP [CHEM] AM CBC WITH AUTO DIFF [HEME] AM - Plan Plan:: This 77 year old male admitted with community acquired pneumonia 1. Community acquired pneumonia: Improving, Continue Levaquin 750 mg. leukocytosis remains, but likely secondary to steroid administration. Afebrile. BC negative, sputum culture gram pos cocci in chains and pairs. Attempt to wean from oxygen today and hope for home in am. 2. Influenza A positive: Continue Tamiflu 75 mg BID. Continue precautions 3. COPD exacerbation: Solumedrol discontinued, Prednisone 40 mg starting today. Conitnue Duonebs and albuterol. Continue home inhalers. 4. Hx CAD: Stable. Has noted hx of LBBB. Will continue ASA, Imdur and Pravastatin 5. BPH: Stable. Continue Proscar and Flomax. 6. Dementia: Stable. Continue Aricept and Namenda VTE prophylaxis: Heparin Dispo: possible DC in am.
[2017-09-11] MEDS: Levofloxacin/Dextrose 5%-Water 750 MG in Premix Bag 1 BAG IV SCH (12:05)
[2017-09-11] MEDS: Donepezil 10 MG Tab PO SCH (20:31)
[2017-09-11] MEDS: Montelukast 10 MG Tab PO SCH (20:31)
[2017-09-11] MEDS: Pravastatin 40 MG Tab PO SCH (20:31)
[2017-09-11] MEDS: Nortriptyline 25 MG Cap PO SCH (23:20)
[2017-09-12] MEDS: Albuterol/Ipratropium 3.0-0.5 MG/3 ML Neb Soln NEB SCH ×4 (01:06→14:17)
[2017-09-12 06:16] LABS: CHLORIDE,CL 104 mmol/L (98-110); SODIUM,NA 137 mmol/L (136-146)
[2017-09-12] MEDS: Venlafaxine 75 MG Cap.ER PO SCH (08:23)
[2017-09-12] MEDS: Finasteride 5 MG Tab PO SCH (08:23)
[2017-09-12] MEDS: Tamsulosin 0.4 MG Cap.ER PO SCH (08:23)
[2017-09-12] MEDS: Aspirin 81 MG Tab.Chew PO SCH (08:23)
[2017-09-12] MEDS: predniSONE 20 MG Tab PO SCH (08:24)
[2017-09-12] MEDS: Isosorbide Mononitrate 30 MG Tab.ER PO SCH (08:25)
[2017-09-12] MEDS: Carvedilol 3.125 MG Tab PO SCH (08:26)
[2017-09-12] MEDS: Loratadine 10 MG Tab PO SCH (08:26)
[2017-09-12] MEDS: Oseltamivir 75 MG Cap PO SCH (08:27)
[2017-09-12] MEDS: Heparin Sodium 5,000 Units/ML Vial SUBCUT SCH (08:27)
[2017-09-12] MEDS: Memantine 10 MG Tab PO SCH (08:27)
[2017-09-12] MEDS: Fluticasone Propionate Nasal Spray 16 GM Bottle NASBOTH SCH (08:31)
[2017-09-12] MEDS: MOMETASONE INH SCH (08:32)
[2017-09-12] MEDS: FORMOTEROL INH SCH (08:32)
[2017-09-12] MEDS: LUTEIN PO SCH (08:32)
[2017-09-12] MEDS: MINERALS PO SCH (08:32)
[2017-09-12] MEDS: [UNRECOGNIZED DRUG - OTHER] PO SCH (08:32)
[2017-09-12] MEDS: VIT A C PO SCH (08:32)
[2017-09-12] MEDS: VITAMIN B COMPLEX PO SCH (08:33)
[2017-09-12] MEDS ORDERED: Cefdinir 300 MG Cap PO SCH (09:15)
[2017-09-12] MEDS: Tiotropium Inhaler 18 MCG Inhalation Powder Cap Kit of 5 INH SCH (09:49)
[2017-09-12] MEDS: Benzocaine/Cetylpyridinium/Menthol Lozenge MUCMEM PRN (11:24)
--- NOTE | 2017-09-12 11:55 | PCM.DCSUM1 ---
Discharge Summary - Hospital Course Brief History: This 77 year old male with pmh of COPD, CAD, L lobectomy for lung ca 2011, recurrent pneumonia, dementia, and BPH presented to the ED this morning with complaints of SOB, malaise,chills and cough. They recently flew to [place] from home in [place] to visit family over the holiday. He and his report for the last 5 days he has progressively worsened with SOB and malaise. She reports he has been falling due to weakness, and fell 4 times yesterday not hitting his head. He reports a congested non productive cough, some chest pain that he relates to his recurrent pneumonia. He reports he get this pain whenever he get pneumonia. He denies radiation of the pain, it doesn' t worsen with activity or deep breathing or coughing. It goes away on its own. He denies jaw pain, L shoulder/arm pain and no N/V. Denies swelling to feet or ankles. He was recently seen by his belt lacer at home with a good check up. Family reports some worsening confusion, with his dementia, over the last couple days. He is not oxygen dependent. Quit smoking and drinking 10 years ago. Has some exposure to 2nd hand smoke from family members. In the ED leukocytosis noted, 15,340, Hgb 12.4, BMP WNL, BNP 915, lactate 0.8 BC were obtained. CXR revealed stable L basilar atelectasis/scarring no infiltrates. He was treated with Solumedrol and Albuterol in the ED, suspected to have COPD exacerbation. EKG obtained in ED revealed new LBBB, no current chest pain. Will obtain records/EKG from cardiology in [place]. - Discharge Data Discharge Date: 09/12/17 Discharge Disposition: Home, Self-Care 01 Condition: Good - Discharge Diagnosis/Problem(s) (1) Influenza A SNOMED Code(s): 350841423 ICD Code: J10.1 - FLU DUE TO OTH IDENT INFLUENZA VIRUS W OTH RESP MANIFEST Status: Acute Current Visit: Yes (2) Pneumonia SNOMED Code(s): 745310720 ICD Code: J18.9 - PNEUMONIA, UNSPECIFIED ORGANISM Status: Acute Current Visit: No Qualifiers: Laterality: unspecified laterality (3) COPD exacerbation SNOMED Code(s): 089431178690512 ICD Code: J44.1 - CHRONIC OBSTRUCTIVE PULMONARY DISEASE W (ACUTE) EXACERBATION Status: Acute Current Visit: Yes (4) Left bundle branch block SNOMED Code(s): 96915422 ICD Code: I44.7 - LEFT BUNDLE-BRANCH BLOCK, UNSPECIFIED Status: Acute Current Visit: Yes (5) History of lobectomy of lung SNOMED Code(s): 896680419 ICD Code: Z98.890 - OTHER SPECIFIED POSTPROCEDURAL STATES; Z90.2 - ACQUIRED ABSENCE OF LUNG [PART OF] Status: Chronic Current Visit: Yes (6) Dementia SNOMED Code(s): 29962068 ICD Code: F03.90 - UNSPECIFIED DEMENTIA WITHOUT BEHAVIORAL DISTURBANCE Status: Chronic Current Visit: Yes (7) Hx of coronary artery disease SNOMED Code(s): 114079300 ICD Code: Z86.79 - PERSONAL HISTORY OF OTHER DISEASES OF THE CIRCULATORY SYSTEM Status: Chronic Current Visit: Yes - Patient Instructions Diet: Heart Healthy Diet Activity: As Tolerated, Rest and Relax Today Showering/Bathing: May Shower Notify Provider of: Fever, Increased Pain, Swelling and Redness, Drainage, Nausea and/or Vomiting Other/Special Instructions: Make sure to cover your mouth when you cough and wash hands after coughing or sneezing. - Discharge Plan Home Medications: Home Meds Albuterol [Proventil HFA] 2 puff INH Q4HRRT PRN 02/15/16 [History] Albuterol [Take Home: Albuterol 0.083%, 4 Neb Pack] 1 ampule INH QID PRN [History] Aspirin 81 mg PO DAILY 02/15/16 [History] Carvedilol [Coreg] 3.125 mg PO BID 02/15/16 [History] Donepezil HCl 10 mg PO BEDTIME 02/15/16 [History] Finasteride 5 mg PO DAILY 02/15/16 [History] Fluticasone Propionate [Flovent] 2 spray NASBOTH DAILY 02/15/16 [History] Ipratropium/Albuterol Sulfate [Iprat-Albut 0.5-3(2.5) mg/3 ml] 1 ampule INH ASDIRECTED PRN 02/15/16 [History] Isosorbide Mononitrate [Imdur] 30 mg PO DAILY 02/15/16 [History] Loratadine 10 mg PO DAILY 02/15/16 [History] Lutein/Minerals/Vit A,C & E [Ocuvite] 1 tab PO DAILY 02/15/16 [History] Memantine HCl [Namenda] 10 mg PO BID 02/15/16 [History] Mometasone/Formoterol [Dulera 200-5 MCG] 2 puff INH BID 02/15/16 [History] Montelukast Sodium [Singulair] 10 mg PO BEDTIME 02/15/16 [History] Nortriptyline HCl [Pamelor] 150 mg PO BEDTIME 02/15/16 [History] Pravastatin Sodium [Pravastatin (Pravachol)] 40 mg PO BEDTIME 02/15/16 [History] Tiotropium [Spiriva HandiHaler] 18 mcg INH DAILY 02/15/16 [History] Venlafaxine [Venlafaxine HCl ER] 150 mg PO DAILY 02/15/16 [History] Vitamin B Complex 2 tab PO DAILY 02/15/16 [History] Omeprazole 20 mg PO ACBREAKFAST 09/09/17 [History] Tamsulosin [Flomax] 0.4 mg PO PCBREAKFAST 09/09/17 [History] Forms: ED Department Discharge Referrals: PCP,None [Primary Care Provider] - (Follow up with PCP when you return to [place]) - Discharge Summary/Plan Comment DC Time >30 min.: No Discharge Summary/Plan Comment: Discharge Diagnoses: Influenza A positive Pneumonia COPD exacerbation HTN Hx LBBB Hx CABG Hx CAD Hx L Lobectomy BPH Dementia Flex was admitted and treated with Levaquin for clinically suspected pneumonia from symptoms, leukocytosis and productive cough. He was also found to be Influenza A positive and started on Tamiflu 75 mg BID. He was treated with Duonebs and Solumderol for suspicion of COPD exacerbation, which likely was mild if at all. He was weaned to Prednisone 40 mg daily and will be kept of this for another 3 days then will stop. BC returned negative. He is feeling much better, continues to have a cough, but this is improved as well and he has been weaned off oxygen as well. Sputum culture returned today with Strep pneumo resistant to Levaquin. He was switched to Cefdinir 300 mg BID. He was monitored after first dose due to PCN allergy. He was done well and will be discharged home today. Leukocytosis remains, 16,000 but likely secondary to steroid use. LS have improved as well as myalgias and SOB. He is afebrile. I have spoken with his and will provide her and their son with Tamiflu prophylactically. For her other children and grandchildren they were going to hold off and monitor. They were educated, if any start to become ill with flu like symptoms they should be evaluated in the clinic or ED as soon as possible. Both were educated on good hand hygiene and covering his cough when at home. He is traveling here from [place] for the holidays and will be returning home. He is to follow up with PCP once he returns home, or return to ED or clinic if concerns should arise prior to that. - General Info Date of Service: 09/12/17 Admission Dx/Problem (Free Text: Admission Diagnosis/Problem Admission Diagnosis/Problem Pneumonia and Influenza A positive Subjective Update: Sitting up in chair, appears well. He reports he is feeling much better. Cough continues but no longer productive. No subjective fevers and no further myalgias. He is hoping for discharge today. Denies chest pain or SOB. Functional Status: Reports: Pain Controlled, Tolerating Diet, Ambulating, Urinating - Review of Systems General: Reports: No Symptoms. Denies: Fever, Weakness, Malaise HEENT: Reports: Sore Throat (lozenges have helped). Denies: Sinus Congestion, Visual Changes Pulmonary: Reports: Cough. Denies: Shortness of Breath, Sputum, Hemoptysis, Wheezing Cardiovascular: Reports: No Symptoms. Denies: Chest Pain, Palpitations, Edema, Lightheadedness Gastrointestinal: Reports: No Symptoms. Denies: Abdominal Pain, Decreased Appetite, Diarrhea, Nausea, Vomiting Genitourinary: Reports: No Symptoms. Denies: Dysuria, Frequency, Burning Skin: Reports: No Symptoms Neurological: Reports: No Symptoms. Denies: Confusion Psychiatric: Reports: No Symptoms. Denies: Confusion - Patient Data Vitals - Most Recent: Last Vital Signs Temp 96.5 F 09/12/17 08:00 Pulse 92 09/12/17 08:26 Resp 22 H 09/12/17 08:00 BP 156/80 H 09/12/17 08:26 Pulse Ox 94 L 09/12/17 08:00 Weight - Most Recent: 68.039 kg I&O - Last 24 hours: Intake & Output 09/11/17 09/12/17 09/12/17 22:59 06:59 14:59 Intake Total 1080 940 Output Total 1810 Balance 1080 -870 Lab Results - Last 24 hrs: Laboratory Results - last 24 hr 09/12/17 09/12/17 Range/Units 05:17 05:17 WBC 16.48 H (4.0-11.0) K/uL RBC 3.71 L (4.50-5.90) M/uL Hgb 12.1 L (13.0-17.0) g/dL Hct 36.0 L (38.0-50.0) % MCV 97.0 (80.0-98.0) fL MCH 32.6 H (27.0-32.0) pg MCHC 33.6 (31.0-37.0) g/dL RDW Std Deviation 44.9 (28.0-62.0) fl RDW Coeff of [place] 13 (11.0-15.0) % Plt Count 229 (150-400) K/uL MPV 9.90 (7.40-12.00) fL Neut % (Auto) 83.7 H (48.0-80.0) % Lymph % (Auto) 7.6 L (16.0-40.0) % [place] % (Auto) 8.6 (0.0-15.0) % Eos % (Auto) 0.0 (0.0-7.0) % Baso % (Auto) 0.1 (0.0-1.5) % Neut # (Auto) 13.8 H (1.4-5.7) K/uL Lymph # (Auto) 1.3 (0.6-2.4) K/uL [place] # (Auto) 1.4 H (0.0-0.8) K/uL Eos # (Auto) 0.0 (0.0-0.7) K/uL Baso # (Auto) 0.0 (0.0-0.1) K/uL Nucleated RBC % 0.0 /100WBC Nucleated RBCs # 0 K/uL Sodium 137 (136-146) mmol/L Potassium 3.8 (3.5-5.1) mmol/L Chloride 104 (98-110) mmol/L Carbon Dioxide 23 (21-31) mmol/L BUN 19 (6.0-23.0) mg/dL Creatinine 0.8 (0.6-1.5) mg/dL Est Cr Clr Drug Dosing 72.00 mL/min Estimated GFR (MDRD) > 60.0 ml/min Glucose 118 H (60-110) mg/dL Calcium 9.1 (8.8-10.8) mg/dL SHANTANU Results - Last 24 hrs: Microbiology 09/09/17 19:00 Gram Stain - Final Sputum - Expectorated Sputum Culture - Final Streptococcus Pneumoniae Med Orders - Current: Current Medications Acetaminophen (Tylenol) 650 mg PO Q4H PRN PRN Reason: Pain (mild 1-3) Albuterol (Proventil Neb Soln) 2.5 mg NEB Q2HR PRN PRN Reason: Shortness Of Breath/wheezing Albuterol/Ipratropium (Duoneb 3.0-0.5 Mg/3 Ml) 3 ml NEB Q4HRRT [facility] Last Admin: 09/12/17 09:49 Dose: 3 ml Aspirin (Aspirin) 81 mg PO DAILY [facility] Last Admin: 09/12/17 08:23 Dose: 81 mg Benzocaine/Menthol (Cepacol Sore Throat) 1 lozenge MUCMEM Q2H PRN PRN Reason: Sore Throat Last Admin: 09/12/17 11:24 Dose: 1 lozenge Carvedilol (Coreg) 3.125 mg PO BIDMEALS [facility] Last Admin: 09/12/17 08:26 Dose: 3.125 mg Cefdinir (Omnicef) 300 mg PO BID [facility] Last Admin: 09/12/17 09:56 Dose: 300 mg Donepezil HCl (Aricept) 10 mg PO BEDTIME [facility] Last Admin: 09/11/17 20:31 Dose: 10 mg Finasteride (Proscar) 5 mg PO DAILY [facility] Last Admin: 09/12/17 08:23 Dose: 5 mg Fluticasone Propionate (Flonase) 16 gm NASBOTH DAILY [facility] Last Admin: 09/12/17 08:31 Dose: 1 puff Heparin Sodium (Porcine) (Heparin Sodium) 5,000 units SUBCUT Q12HR [facility] Last Admin: 09/12/17 08:27 Dose: 5,000 units Isosorbide Mononitrate (Imdur) 30 mg PO DAILY [facility] Last Admin: 09/12/17 08:25 Dose: 30 mg Loratadine (Claritin) 10 mg PO DAILY [facility] Last Admin: 09/12/17 08:26 Dose: 10 mg Memantine (Namenda) 10 mg PO BID [facility] Last Admin: 09/12/17 08:27 Dose: 10 mg Montelukast Sodium (Singulair) 10 mg PO BEDTIME [facility] Last Admin: 09/11/17 20:31 Dose: 10 mg Nortriptyline HCl (Nortriptyline) 150 mg PO BEDTIME [facility] Last Admin: 09/11/17 23:20 Dose: Not Given Omeprazole (Omeprazole) 20 mg PO ACBREAKFAST [facility] Last Admin: 09/12/17 07:36 Dose: 20 mg Oseltamivir Phosphate (Tamiflu) 75 mg PO BID [facility] Last Admin: 09/12/17 08:27 Dose: 75 mg Lutein/Minerals/Vit A,C & E 1 Tab Ocuvite 1 each PO DAILY [facility] Last Admin: 09/12/17 08:32 Dose: Not Given Mometasone/ (Formoterol 2 Puff) 2 each INH BID [facility] Last Admin: 09/12/17 08:32 Dose: Not Given Vitamin B Complex 2 (Tab) 2 each PO DAILY [facility] Last Admin: 09/12/17 08:33 Dose: Not Given Pravastatin Sodium (Pravachol) 40 mg PO BEDTIME [facility] Last Admin: 09/11/17 20:31 Dose: 40 mg Prednisone (Prednisone) 40 mg PO WITHBREAKFAST [facility] Last Admin: 09/12/17 08:24 Dose: 40 mg Tamsulosin HCl (Flomax) 0.4 mg PO PCBREAKFAST [facility] Last Admin: 09/12/17 08:23 Dose: 0.4 mg Tiotropium [place] (Spiriva Handihaler) 18 mcg INH DAILY [facility] Last Admin: 09/12/17 09:49 Dose: 1 puff Venlafaxine HCl (Effexor Xr) 150 mg PO DAILY [facility] Last Admin: 09/12/17 08:23 Dose: 150 mg Discontinued Medications Albuterol/Ipratropium (Duoneb 3.0-0.5 Mg/3 Ml) 3 ml NEB ONETIME ONE Stop: 09/09/17 10:44 Last Admin: 09/09/17 10:49 Dose: Not Given Albuterol/Ipratropium (Duoneb 3.0-0.5 Mg/3 Ml) Confirm Administered Dose 3 ml .ROUTE .STK-MED ONE Stop: 09/09/17 10:44 Last Admin: 09/09/17 10:48 Dose: 3 ml Aspirin (Aspirin) 324 mg PO ONETIME ONE Stop: 09/09/17 10:40 Last Admin: 09/09/17 11:09 Dose: 324 mg Furosemide (Lasix) 20 mg IVPUSH NOW ONE Stop: 09/09/17 11:28 Last Admin: 09/09/17 12:03 Dose: 20 mg Levofloxacin/Dextrose 750 mg/ (Premix) 150 mls @ 100 mls/hr IV Q24H [facility] Last Admin: 09/11/17 12:05 Dose: 100 mls/hr Sodium Chloride (Normal Saline) 1,000 mls @ 75 mls/hr IV ASDIRECTED JAMES Stop: 09/10/17 04:04 Last Admin: 09/09/17 15:52 Dose: 75 mls/hr Methylprednisolone Sodium Succinate (Solu-Medrol) 125 mg IVPUSH ONETIME ONE Stop: 09/09/17 10:34 Last Admin: 09/09/17 11:10 Dose: 125 mg Methylprednisolone Sodium Succinate (Solu-Medrol) 125 mg IVPUSH Q12H [facility] Last Admin: 09/10/17 20:40 Dose: 125 mg Methylprednisolone Sodium Succinate (Solu-Medrol) 125 mg IVPUSH DAILY [facility] Morphine Sulfate (Morphine) 2 mg IVPUSH ONETIME ONE Stop: 09/09/17 10:48 Last Admin: 09/09/17 11:19 Dose: Not Given Non-Formulary Medication (Omeprazole [Omeprazole]) 20 mg PO ACBREAKFAST [facility] Last Admin: 09/11/17 09:00 Dose: Not Given Omeprazole (Omeprazole) Confirm Administered Dose 20 mg .ROUTE .STK-MED ONE Stop: 09/11/17 08:54 Last Admin: 09/11/17 09:06 Dose: Not Given - Exam Quality Assessment: Reports: DVT Prophylaxis. Denies: Supplemental Oxygen General: Reports: Alert, Oriented, Cooperative, No Acute Distress HEENT: Reports: Pupils Equal, Mucous Membr. Moist/[place], Other (scant erythema to posterior pharynx) Neck: Reports: Supple Lungs: Reports: Normal Respiratory Effort, Decreased Breath Sounds (L lower lobe ), Rhonchi (L upper lobe, but much improved, with scant wheezing.) Cardiovascular: Reports: Regular Rate, Regular Rhythm, No Murmurs GI/Abdominal Exam: Normal Bowel Sounds, Soft, Non-Tender, No Organomegaly, No Distention, No Abnormal Bruit, No Mass, Pelvis Stable Extremities: Normal Inspection, Normal Range of Motion, Non-Tender, No Pedal Edema, Normal Capillary Refill Neurological: Reports: No New Focal Deficit Psy/Mental Status: Reports: Alert, Normal Affect, Normal Mood *Q Meaningful Use (DIS) - VTE *Q VTE Criteria *Q: - Stroke *Q Stroke Criteria *Q: - AMI *Q AMI Criteria *Q:
[2017-09-12 12:12] VITALS: BP 142/73
== END 2017-09-12 14:40 | disposition home or self-care (01) | DRG 194 ==
LOC: MW.ED 10:24 → MW.MS 11:25
PROVIDERS: ADMIT Internal Medicine; ATTEND Internal Medicine
DX: J13 Pneumonia due to Streptococcus pneumoniae (principal); J44.1 Chronic obstructive pulmonary disease with (acute) exacerbation; I25.2 Old myocardial infarction; J44.0 Chronic obstructive pulmonary disease with (acute) lower respiratory infection; J10.1 Influenza due to other identified influenza virus with other respiratory manifestations; I44.7 Left bundle-branch block, unspecified; F03.90 Unspecified dementia, unspecified severity, without behavioral disturbance, psychotic disturbance, mood disturbance, and anxiety; I25.10 Atherosclerotic heart disease of native coronary artery without angina pectoris; I10 Essential (primary) hypertension; N40.0 Benign prostatic hyperplasia without lower urinary tract symptoms; Z95.5 Presence of coronary angioplasty implant and graft; Z79.899 Other long term (current) drug therapy; Z95.1 Presence of aortocoronary bypass graft; Z90.2 Acquired absence of lung [part of]; Z98.890 Other specified postprocedural states; Z85.118 Personal history of other malignant neoplasm of bronchus and lung; Z88.0 Allergy status to penicillin; Z88.8 Allergy status to other drugs, medicaments and biological substances; Z86.73 Personal history of transient ischemic attack (TIA), and cerebral infarction without residual deficits; Z87.891 Personal history of nicotine dependence
CPT/HCPCS: 36415; 71010; 80053; 83605; 83880; 84484; 85025; 87040 ×2; 93005; 94640; 96374; 99285; A9270; J2930; 80048; 87070; 87186; 87205; 87804; 96375; J1644; J1940; J1956; J7040